=== PATIENT | male | born 2000 | race African-American/Black ===

== ENCOUNTER → 2019-10-24 | Outpatient (CLI) | payer BC | LOC: MRI 09:26 | PROVIDERS: ATTEND Family Medicine | DX: S83.242A Other tear of medial meniscus, current injury, left knee, initial encounter (principal); M71.22 Synovial cyst of popliteal space [Baker], left knee; M25.562 Pain in left knee; X58.XXXA Exposure to other specified factors, initial encounter; Y93.89 Activity, other specified; Y92.89 Other specified places as the place of occurrence of the external cause; Y99.8 Other external cause status ==

== ENCOUNTER → 2020-04-08 | Outpatient (CLI) | payer BC ==
[~2020-04-08] MED LIST: FIBER500 MG PO; [UNRECOGNIZED DRUG - OTHER] PO
== END ==
LOC: LAB 07:58
PROVIDERS: ATTEND Orthopaedic Surgery Sports Medicine
DX: Z01.812 Encounter for preprocedural laboratory examination (principal); Z20.828 Contact with and (suspected) exposure to other viral communicable diseases

== ENCOUNTER 2020-04-13 09:03 | Day surgery (SDC) | payer BC ==
[~2020-04-13] VITALS: Ht 172.7 cm; Wt 72.6 kg
--- NOTE | 2020-04-14 07:25 | O ---
[address] [address] OPERATIVE REPORT Name: SERENITY KHANNA Room #: DEP [facility]..#: [id number] Admission: 04/13/20 Attend Phys: Karson Middleton MD Discharge: 04/13/20 Date of : [birth year] Report #: [id number] THIS REPORT FOR: cc: Flip Amador James A. DO McCabe, Michael P. MD ~ DATE OF SERVICE: 04/13/2020 SERVICE: Orthopedics. FACILITY: [facility]. SURGEON: Karson Middleton MD CAFE AIDE: Ashley Jimenez NP. INDICATION FOR CAFE AIDE: Extremity positioning, retraction, assistance with repair. PREOPERATIVE DIAGNOSES: 1. Left knee pain. 2. Left knee lateral meniscus tear. 3. Left knee parameniscal cyst. POSTOPERATIVE DIAGNOSES: 1. Left knee pain. 2. Left knee lateral meniscus tear. 3. Left knee parameniscal cyst. PROCEDURES: 1. Left knee open lateral meniscus repair. 2. Left knee open cyst excision. 3. Left knee arthroscopic debridement/synovectomy. COMPLICATIONS: None. DRAINS: None. SPECIMENS: Parameniscal cyst tissue. FINDINGS: 1. Radial oriented inner tear of the lateral meniscus treated with debridement. 2. Horizontal component in the more peripheral portion of the lateral meniscus treated with an open repair with a Everett meniscal tape suture. 3. Cyst excised and sent for pathology. [address] [address] OPERATIVE REPORT Name: SERENITY KHANNA Room #: DEP [facility].#: [id number] Admission: 04/13/20 Attend Phys: Karson Middleton MD Discharge: 04/13/20 Date of : [birth year] Report #: [id number] 4. Synovectomy of 2 compartments POSTOPERATIVE PLAN: Weightbearing and range of motion as tolerated without formal restrictions. He will start physical therapy within 10 days of surgery and was given a prescription today. 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 We tried conservative measures including rest, activity modification, physical therapy, oral medicines all unfortunately without sufficient relief. He was interested in definitive treatment when the work season was diminished in terms of frequency and intensity. Risks, benefits, alternatives and indications of surgery were discussed with him in detail. Risks include but not limited to pain, bleeding, infection, injury to nerves or blood vessels, persistent pain despite surgical intervention, recurrence, failure of the repair, need for further surgery as well as complications related to anesthesia up to and including . The preoperative MRI showed a lateral meniscus tear with associated parameniscal cyst. We made plans to address both due to the size of the cyst. DESCRIPTION OF PROCEDURE: After left lower extremity was correctly identified in the preoperative holding area as the operative extremity, the patient was taken to the operating room where general anesthesia was induced without complication with LMA. He was padded appropriately. Prophylactic antibiotics administered at appropriate time. Tourniquet was applied to the left leg. Left lower extremity was then prepped and draped in standard sterile fashion. Time-out procedure was performed. Esmarch was used. Tourniquet inflated to 250 mmHg. Standard anterolateral viewing portals was established followed by anteromedial working portals was performed. Diagnostic arthroscopy revealed intact articular cartilage of the patellofemoral joint, the medial compartment and the medial meniscus. The ACL and PCL were normal. The lateral compartment articular cartilage was healthy. There was a radial tear of the lateral meniscus that extended about 50% of the thickness and was on the inner rim on the white-white side. The tear did not extend to the peripheral capsule, so there was not an indication for radial type of meniscal repair. The debridement was performed, resecting the fat pad and synovial tissue around the lateral meniscus to enhance visualization and eliminate the synovitis that was present over here. The scope was then placed in the anteromedial portal and then the working portal was made to be the lateral portal and we used an assortment of meniscal biters to perform debridement of the inner rim on the lateral meniscus resecting the radial tear portion of the meniscus tear and preserving the peripheral meniscus, [address] [address] OPERATIVE REPORT Name: SERENITY KHANNA Room #: DEP [facility] M.R.#: [id number] Admission: 04/13/20 Attend Phys: Karson Middleton MD Discharge: 04/13/20 Date of : 98 Report #: [id number] approximately 75% of meniscal volume was able to be retained with this technique. The meniscal debris was lavaged out of the knee and the limited debridement and synovectomy was then completed and the arthroscopic effusion was drained. Prior to removing the scope, I did place an 18-gauge spinal needle percutaneously through the lateral joint line into the apex of the location of the radial tear debridement, so I could see exactly where the cyst was originating from while coming from an anterior to posterior fashion, so I did not puncture the cyst itself. A 4 cm incision was then made over the location of the cyst and dissection was taken down full-thickness skin flaps. We incised the IT band in line with the fibers retracted and then palpated and visualized the cyst. The cyst was dissected superficially working proximally and distally and then working deep following down into the entrance into the lateral capsule and then into the lateral meniscus itself. I followed it root and into the origin of a horizontal tear in the lateral meniscus anterior horn, which was consistent with the preoperative MRI. I did make a small incision on the underside of the meniscus to ensure that we were in the appropriate position and then transected the cyst stalk at the horizontal lateral meniscus tear and then continued the dissection now posteriorly. It had 2 primary septations that were diving deep posterior and I did not want to extend extensive dissection to the lateral collateral ligament complex or towards the common peroneal nerve and so because the origin was not posterior, I used an 0 Vicryl suture x 2 to tie off the cyst at the septation posteriorly and then removed the cyst and sent it for pathology. A #0 Vicryl suture was then used with a gengcn-nx-forar suture to repair the superior and inferior leaflet of the horizontal meniscus tear with a dzixye-er-xcmqw stitch passed and then I used that Vicryl to pass a Triny meniscal suture tape in a rpseyf-sa-wmpft fashion, which closed down the horizontal meniscus tear nicely and then tied this off. The Vicryl was then used to repair the inferior capsulotomy and then oversewed the capsular defect and the meniscal suture. The IT band was then closed after the wound was irrigated and the skin was closed with 2-0 Vicryl followed by running subcuticular 3-0 Monocryl and Dermabond. Sterile dressing was applied followed by a compression stocking and ice cooler. The patient was awakened from anesthesia and taken to recovery room in stable condition. No complications. All counts were correct. Postoperative plan will be weightbearing as tolerated and range of motion as tolerated based on the meniscal tear pattern and the repair quality. <ELECTRONICALLY SIGNED> By: Karson Middleton MD 04/14/20 0725 1132 1300 Karson Middleton MD /nt
--- NOTE | 2020-04-14 16:06 | PATH ---
[facility] [address] [place] [address] PATHOLOGY RPT PROCEDURE Name: ABI KHANNAS Room #: DEP [facility] M.R.#: [id number] Admission: 04/13/20 Date of : [birth year] Discharge: 04/13/20 Report #: [id number] Path Case #: [id number] Accession Number: [id number] . 01 Material submitted: . knee - PARAMENISCAL CYST. Modifiers: left . 01 Clinical history: . ARTHROSCOPY/DEBRED/MENISCEC/CHONDROP PAIN IN LEFT KNEE, OTHER INSTABILITY, LEFT KNEE, CHONDROOMALACIA PATELLAE LEFT KNEE . 02 Diagnosis: Parameniscal cyst, resection: - Cyst lined by extensive myxoid degeneration and dense chronic inflammation. - Negative for malignancy. - Scattered hypertrophic vessels identified within connective tissue. (IUV/db; 04/14/2020) LBQ 04/14/2020 1400 Local . 02 Electronically signed: . Lenora Zamudio MD, Pathologist NPI- [id number] . 01 Gross description: . The specimen is received in formalin, labeled "Cristino Khanna, para meniscal cyst" and consists of a rubbery fluctuant segment of pink-barnes tissue measuring 2.6 x 1.6 x 0.8 cm. Sectioning shows cystic cut surfaces filled with mucinous material. The specimen is entirely submitted in A1. (SDY; 04/13/2020) SYU/SYU 04/13/2020 1609 Local . 02 Pathologist provided ICD-10: M25.862 . 02 CPT . 008121 Specimen Comment: A courtesy copy of this report has been sent to [phone] Specimen Comment: [phone] Specimen Comment: Report sent to / DR BATES Specimen Comment: A duplicate report has been generated due to demographic updates. Performed at: [address] [facility], [place], [place] [id number] [place] [address] PATHOLOGY RPT PROCEDURE Name: CRISTINO KHANNA Room #: DEP [facility] Lana#: [id number] Admission: 04/13/20 Date of : [birth year] Discharge: 04/13/20 Report #: [id number] Path Case #: [id number] MD Marv Taylor MD Phone: [phone] Performed at: [address] [id number] MD Lenora Zamudio MD Phone: [phone]
== END 2020-04-13 12:30 | disposition home or self-care (01) ==
LOC: OR 09:03 → TBA 09:04 → OR 09:47
PROVIDERS: ATTEND Orthopaedic Surgery Sports Medicine
DX: M25.562 Pain in left knee (principal); S83.282A Other tear of lateral meniscus, current injury, left knee, initial encounter; M23.001 Cystic meniscus, unspecified lateral meniscus, left knee; M25.862 Other specified joint disorders, left knee; M65.862 Other synovitis and tenosynovitis, left lower leg; F17.210 Nicotine dependence, cigarettes, uncomplicated; Z98.890 Other specified postprocedural states; Z88.0 Allergy status to penicillin; X58.XXXA Exposure to other specified factors, initial encounter; Y93.89 Activity, other specified; Y92.89 Other specified places as the place of occurrence of the external cause; Y99.8 Other external cause status
CPT/HCPCS: 50010; 50101; 50405; 50445; 51320; 52001; 52282; 54118; 56524; 56525; 56527; 57103; 57180; 58488; 62110; 62900; 70005